=== PATIENT | female | born 1950 | race Caucasian/White ===

== ENCOUNTER 2025-01-18 12:35 | Outpatient (AMB) | payer MEDICARE, OTHER, SELFPAY ==
--- NOTE | 2025-01-18 13:02 | MHC.OFFVIS ---
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: No Accompanied by: Spouse Allergies glyburide Allergy (Mild, Verified 01/18/25 13:09) Rash Penicillins Allergy (Unknown, Verified 01/18/25 13:09) Unknown Medication List - Last Reviewed 01/18/25 by GEETHA Cazares acetaminophen-codeine 300-30 mg 1 - 2 tabs PO BEDTIME PRN aspirin 81 mg PO DAILY atorvastatin 40 mg PO BEDTIME blood sugar diagnostic (Accu-Chek Anu Plus test strips) As directed carvedilol (Coreg) 25 mg PO BID cyanocobalamin (vitamin B-12) 1,000 mcg PO DAILY diazepam 5 mg PO BID PRN escitalopram oxalate (Lexapro) 20 mg PO DAILY fluticasone propionate 50 mcg/actuation 1 spray intranasal DAILY furosemide 20 mg PO DAILY lisinopril 5 mg PO DAILY lorazepam 0.5 mg PO BID trazodone 100 mg PO BEDTIME zolpidem 5 mg PO BEDTIME HPI Comments Details: 74y/o female comes for gait and balance issues. she started having balance issues - last year . In September 2024- she was diagnosed with cervical myelopathy - saw when she went to ER for fall. she had laminectomy - Thoracic spine , when she recovered she could not walk.she was taken back for Lumbar laminectomy 2 mths ago. she went to [facility] rehab where she had trouble standing - she is doing PT. No tremors. she reports left leg weakness since the surgery.she has mild numbness in her legs. At night she has spasms , pain , tingling in her legs. she has urinary retention and has a cath . she also reports insomnia and is on medications.she has snoring and denies any hypersomnia. 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 Spinal stenosis of lumbar region Obesity, class 1 HTN (hypertension) Hyperlipidemia Type 2 diabetes mellitus Depression CAD (coronary artery disease) Surgical History (Updated 01/18/25 @ 13:27 by Sena Jara MD) History of lumbar laminectomy H/O laminectomy Family History Mother CAD (coronary artery disease) Stroke Father CAD (coronary artery disease) Social History Alcohol intake: never Patient Tobacco Use Status: Never used Tobacco Physical Exam Vital Signs: Last Vital Signs Pulse 72 01/18/25 13:07 BP 90/60 01/18/25 13:07 Pulse Ox 98 01/18/25 13:07 Oxygen Delivery Method Room Air 01/18/25 13:07 Const General: cooperative and comfortable Nutritional Appearance: average body habitus Orientation/consciousness: patient oriented x3 Eyes Pupils: Equal, round and reactive pupils present Neuro Other: Gait- unable to evaluate Motor 5/5 UE LE 4/5 General: patient oriented x3, tone normal, moves all extremities and Unable to assess gait Cranial nerves: Yes Facial sensation intact/muscles of mastication intact, Yes Equal, round and reactive pupils present, Yes Bilaterally intact EOM present, Yes Normal facial strength present, Yes Midline tongue present and Yes Ability to bilaterally elevate shoulders present Cognition (Neuro): normal cognition Gait exam (Neuro): Unable to assess gait Motor exam (neuro): Normal motor muscle tone present throughout Deep tendon reflexes (DTR's): Right triceps reflex intensity grade: 1+, Left triceps reflex intensity grade: 1+, Rt Biceps (C5, C6): 1+, Left biceps reflex intensity grade: 1+, Right brachioradialis reflex intensity grade: 1+, Left brachioradialis reflex intensity grade: 1+, Right patellar reflex intensity grade: 2+ and Left patellar reflex intensity grade: 2+ Coordination: [id number] test normal Assessment & Plan Assessment & Plan (1) Cord compression myelopathy: Comment: T10-T11 spinal stenosis with cord compression and myelopathic changes in T10-T11 with cord edema Code(s): G95.20 - Unspecified cord compression Category: Medical (2) Gait apraxia: Code(s): R48.2 - Apraxia Category: Medical (3) Spinal stenosis of cervicothoracic region: Code(s): M48.03 - Spinal stenosis, cervicothoracic region Category: Medical (4) Spinal stenosis of lumbar region: Comment: moderate to severe canal stenosis at L3-4 Code(s): M48.061 - Spinal stenosis, lumbar region without neurogenic claudication Category: Medical Qualifiers: Neurogenic claudication status: unspecified Qualified Code(s): M48.061 - Spinal stenosis, lumbar region without neurogenic claudication Plan She has a second opinion scheduled with Continue PT Her gait apraxia is related to her myelopathyrelated to cord compressions Coding Level of Care Code New Pt Level 4 (05010) Diagnoses Cord compression myelopathy G95.20 Gait apraxia R48.2 Spinal stenosis of cervicothoracic region M48.03 Spinal stenosis of lumbar region, unspecified whether neurogenic claudication present M48.061 Neurogenic claudication status: unspecified
[2025-01-18 13:07] VITALS: BP 90/60; PULSE 72; O2SAT 98
--- OUTSIDE RECORDS SUMMARY | 2025-01-18 13:24 | XMS_ITS | Data Portability ---
Author Organization [place] - [facility], Allergy Address [address] [address] Care Team Providers Care Pizza Cook Name Role Phone DION ZAMBRANO Referring Provider Assessment Encounter Date Assessment Date Assessment LastModified by Organization Details LastModified Time 07/08/2024 07/08/2024 Patient describes imbalance when on her feet. She does not feel any difficulty with balance when she is sitting or when rolls over in bed. I do not believe she has a peripheral vestibular disturbance but rather some form of central issue causing her to be unstable on her feet. Recommend she follow-up with her primary care and pursue that referral to neurology as she had mentioned earlier Patient has bilateral sensorineural hearing loss with a slight mixed component on the right side. She is a good candidate for amplification but is not currently interested at this time. She does recall having MRI of the brain with her primary care several months ago, results are not available but she was told it was normal. [email or web address] Not available 07/08/2024 12:46:18 Plan of Treatment Reminders Order Date Submit Date Provider Last Modified By Organization Details Last Modified Time Details Appointments None record ed. Lab None record ed. Referral None record ed. Procedures None record ed. Surgeries None record ed. Imaging None record ed. Medication Orders None record ed. Patient TargetsNo targets recorded. Patient InstructionsNo instructions recorded. Reason for Referral None Reported. Results Created Date Observation Date Name Description Value Unit Range Abnormal Flag Note LastModifiedBy Organization Detail LastModifiedTime 07/08/19 25 audio gram No observ ation record ed. BARCODE Not Available 2024 13:51:44 Result Notes None recorded. Problems Name Problem SNOMED Code Status Onset Date Resolution Date Notes Provider Name and Address Organization Details Recorded Time Impacted cerumen of bilateral ears 33675741336 25810 Active 2020 Impacted cerumen, bilateral ; Note: Date Diagnosed : 10/03/2020 1:52 PM (H61.23) Not Available [facility] 4 02:19:08 Sensorine ural hearing loss of bilateral ears 021858133 Active 2020 Sensorine ural hearing loss, bilateral ; Note: Date Diagnosed : 10/03/2020 2:18 PM (H90.3) Not Available [facility] 4 02:19:52 Dizziness and giddiness 162520430 Active 2024 DION ZAMBRANO MD [address] [address], [place], [address] , [facility] 5 11:38:19 Problem Notes None recorded. Procedures Surgical History Date Name Laterality Status Provider Name and Address Organization Details Recorded Time 07/08/2024 Comp Audio with Tymps - 49076 & 19958 completed Noa Castillo MA - [facility] 07/08/2024 12:18:30 07/08/2024 Wax_DP completed DION ZAMBRANO MD [address] [place] [address], [place], [address], [facility] 07/08/2024 11:37:40 Imaging Results None recorded. Procedure Notes None recorded. Medical Equipment None Reported. Allergies Allergen ID Allergen Name Allergen Category Reaction Reaction Severity Criticality Documentation Date Start Date Code Code System Note Provider Name and Address Organization Details Recorded Time 43617 Product containin g penicilli n (product) medicatio n other Not available Not available 11/05/2023 70914 8001 SNOMED React ion: Unkno wn; Not Available [facility] 4 00:51:37 Medications Name Sig Start Date Stop Date Status Note LastModified by Organization Details LastModified Time atorvasta tin 40 mg tablet TAKE 1 TABLET BY MOUTH DAILY active Not Available Not Available No t Available carvedilo l 25 mg tablet TAKE 1 TABLET BY MOUTH TWICE DAILY WITH MEALS active Not Available Not Available No t Available trazodone 50 mg tablet TAKE 2 TABLETS BY MOUTH DAILY AT BEDTIME active Not Available Not Available No t Available cyanocoba blaine (vit B-12) 1,000 mcg tablet TAKE 1 TABLET BY MOUTH DAILY active Not Available Not Available No t Available triamcino lone acetonide 0.1 % topical cream APPLY TOPICALL Y TO ITCHY AREAS ON LEGS DAILY AT NIGHT. KEEP REFIGERA LEANDER active Not Available Not Available No t Available lisinopri l 10 mg tablet 07/08 completed Medicati on ID: [id number] B rand Name: lisinopr il Send Method: E-Prescr ibed Sub s Allowed: subs OK Medic ationGen ericName : lisinopr il Not Available Not Available Not Available zolpidem 5 mg tablet TAKE 1 TABLET BY MOUTH DAILY AT BEDTIME active Not Available Not Available No t Available furosemid e 20 mg tablet TAKE 1 TABLET BY MOUTH DAILY active Not Available Not Available No t Available fluticaso ne propionat e 50 mcg/actua tion nasal spray,kylee pension 07/08 completed Medicati on ID: [id number] B rand Name: fluticas one propiona te Send Method: E-Prescr ibed Sub s Allowed: subs OK Medic ationGen ericName : fluticas one propiona te Not Available Not Available Not Available diazepam 5 mg tablet TAKE 1 TABLET BY MOUTH 1 HOUR PRIOR TO MRI AND TAKE A SECOND DOSE NEEDED WHEN YOU ARRIVE FOR THE TEST 07/08 completed Not Available Not Available Not Available escitalop oliva 20 mg tablet TAKE 1 TABLET BY MOUTH DAILY 07/08 completed Not Available Not Available Not Available Levemir FlexPen 100 unit/mL (3 mL) solution subcutane ous insulin pen INJECT 32 UNITS UNDER THE SKIN TWICE DAILY active Not Available Not Available No t Available BD Ultra-Fin e Original Pen Needle 29 gauge x 1/2 USE WITH INSULIN 4 TIMES A DAY active Not Available Not Available No t Available Lantus Solostar U-100 Insulin 100 unit/mL (3 mL) subcutane ous pen INJECT 32 UNITS SUBCUTAN EOUS TWICE DAILY active Not Available Not Available No t Available Tradjenta 5 mg tablet TAKE 1 TABLET BY MOUTH DAILY 07/08 completed Not Available Not Available Not Available Farxiga 5 mg tablet 07/08 completed Medicati on ID: [id number] B rand Name: Farxiga Send Method: E-Prescr ibed Sub s Allowed: subs OK Medic atBart ericName : Red Not Available Not Available Not Available Vitals Date Recorded Body height Body mass index (BMI) Body weight Provider Name and Address Organization Details Last Updated DateTime 07/08/2024 162.56 cm 33 kg/m2 98068.74 g Nancy Rangel [facility] 07/08/2024 11:08:28 Social History None recorded. Functional Status None recorded. Mental Status None recorded. Family History Nothing Reported. Medical History No medical history recorded. Gynecological HistoryNo gynecological history recorded. Obstetrics History GPAL:G 0 P 0 0 0 0 Past Encounters Encounter ID Performer Location Encounter Start Date Encounter Closed Date Diagnosis/Indication Diagnosis SNOMED-CT Code Diagnosis ICD10 Code Diagnosis Note [id number] DION ZAMBRANO MD [facility] [address] [address] 07/08/2024 10:45:50 07/08/2024 12:48:36 Dizziness and giddiness 436892248 R42 Impacted c erumen of bilateral ears 9793964299 942260 H61.23 Ears were meticulous ly cleaned bilaterall y today with fine pics, curettes and/or suction. Patient is encouraged to avoid Q-tips in their ears relative to packing the wax in tighter. They may use the corner of their bath towel to gently clean the nooks and crannies of the external ears as needed. Yearly visits or as needed are recommende d. Sensorineu ral hearing loss of bilateral ears 535045716 H90.3 [id number] CAROLINE KILPATRICK MA, CCC-A [facility] [address] [address] 07/08/2024 12:18:06 07/13/2024 08:04:37 Sensorineural hearing loss of bilateral ears 637434769 H90.3 Audiologic al evaluation results:Ri ght ear:Normal through 250 Hz sloping to severe sensorineu ral hearing loss with excellent word recognitio n.Left ear:Normal through 1 kHz sloping to moderately severe sensorineu ral hearing loss with excellent word recognitio n. Tympanomet ry:Right Ear:Type ALeft Ear:Type A Health Concerns Section Related Observation LastModified by Organization Detai ls LastModified Time None Recorded Concern Status LastModified by Organization Details LastModified Time None Recorded Advance Directives Directive None Recorded Payers Insurance Date Sequence Insurance Name Policy Number Policy Garrett Covered Member ID Garrett Member ID Guarantor Name 09/11/2024 2 [employer] [facility] [id number] 2 Lisset Lopez [id number] Lisset Lopez 09/11/2024 1 MEDICARE B[place]: [facility] Lisset Lopez [id number] 2 Lisest Lopez OBGyn Episode No OBEpisode recorded.
== END 2025-01-18 13:49 | disposition home or self-care (01) ==
PROVIDERS: PCP Internal Medicine; Visit Provider Psychiatry & Neurology Neurology
DX: G95.20 Unspecified cord compression (principal); R48.2 Apraxia; M48.03 Spinal stenosis, cervicothoracic region; M48.061 Spinal stenosis, lumbar region without neurogenic claudication
CPT/HCPCS: 99204

== ENCOUNTER → 2025-01-18 12:35 | Outpatient (BNVA) | payer MEDICARE, OTHER, SELFPAY | PROVIDERS: PCP Internal Medicine; Visit Provider Psychiatry & Neurology Neurology | DX: G95.20 Unspecified cord compression (principal); R48.2 Apraxia; M48.03 Spinal stenosis, cervicothoracic region; M48.061 Spinal stenosis, lumbar region without neurogenic claudication | CPT/HCPCS: 99202 ==

== ENCOUNTER 2025-01-22 12:39 | Outpatient (AMB) | payer MEDICARE, OTHER, SELFPAY ==
[2025-01-22 13:01] VITALS: BMI 30.9
--- NOTE | 2025-01-22 13:01 | HO.SPINEOV ---
Vital Signs 01/22/25 13:01 Height 5 ft 4 in Weight 180 lb BMI 30.9 Intake Visit Reasons: spinal stenosis/second opinion Intake Note: Ms. Lopez is here today for Low back pain and difficulty walking, second opinion. 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 Imaging reviewed severe spinal cord compression with myelomalacia in the lower thoracic spine. She underwent urgent decompression and postoperatively she had an increase of her myelopathic symptoms. Repeat imaging showed signal change in his spinal cord at the operative level. She states that she has difficulty walking with ongoing balance problems but also weakness of predominantly left leg and spasms. Addition she has a urge incontinence. She was not able to feel the bottom of her feet but this has currently improved. She is doing extensive physical therapy. She comes in for 2nd opinion regarding the cause of postoperative deterioration and prognosis. Physical Exam: Pleasant female. She is sitting in a wheelchair. I had her ambulate for short distance that shows a spastic gait. Her bilateral Babinski's. She is having a catheter for urinary incontinence. Sensation is grossly intact however propiocepsiss disturbed. Radiological Studies: MRI done at [facility] shows severe thoracic spinal cord compression with myelomalacia the lower thoracic spine preoperatively. The postoperative MRI shows a good decompression of the spinal cord and again the myelomalacia. Impression/Plan: This patient is suffering from a thoracic myelopathy that deteriorated following surgery. In my opinion, the standard of care was followed. The clinical deterioration was unfortunate but unpredictable and not due to a medical error. Most likely, hyperperfusion of the myelomalacia produced a deterioration following surgery. It is unclear to me, why she also underwent a lumbar decompression for the symptoms a later stage as clinically she is suffering from a thoracic myelopathy and not from a cauda equina syndrome. Fortunately, she is making progress and I told the patient that the end result will be known in 2 years. Thank you for allowing me to participate in your patients care. total time spent was 50 minutes in counseling ,coordination of plan, personal review of imaging, surgical decision making and subsequent plan Ritchie Vital MD, PhD [facility] Trained Neurosurgeon Director, [facility] Coding Level of Care Code New Pt Level 4 (02667) Diagnoses Thoracic spondylosis with myelopathy M47.14
== END 2025-01-22 14:46 | disposition home or self-care (01) ==
LOC: HO.HNS 12:40
PROVIDERS: PCP Internal Medicine; Visit Provider Neurological Surgery
DX: M47.14 Other spondylosis with myelopathy, thoracic region (principal)
CPT/HCPCS: 99204

== ENCOUNTER → 2025-01-22 12:39 | Outpatient (BNVA) | payer MEDICARE, OTHER, SELFPAY | PROVIDERS: PCP Internal Medicine; Visit Provider Neurological Surgery | DX: M47.14 Other spondylosis with myelopathy, thoracic region (principal) | CPT/HCPCS: 99202 ==